=== PATIENT | female | born 1970 | race African-American/Black ===

== ENCOUNTER → 2023-02-21 | Outpatient (CLI) | payer OTHER ==
[~2023-02-21] MED LIST: AMBIEN 10MG10 MG PO; CALCIUM CITRATE1 TA1 PO; EFFEXOR-XR150 MG PO; IMITREX 6M6 MG/0.5 M SQ; MINIPRESS2 MG PO; NAPROSYN500 MG PO; PRINIVIL40 MG PO; PROTONIX20 MG PO; SEROQUEL 1100 MG/TAB PO
== END ==
LOC: COL.RAD 09:20
DX: K31.2 Hourglass stricture and stenosis of stomach (principal); K52.9 Noninfective gastroenteritis and colitis, unspecified; K59.00 Constipation, unspecified
CPT/HCPCS: Q9967

== ENCOUNTER 2024-01-03 07:00 | Day surgery (SDC) | payer OTHER ==
[~2024-01-03] VITALS: Ht 160.1 cm; Wt 94.4 kg
[2024-01-03] VITALS (16 sets, daily range): BP systolic 105–149; BP diastolic 67–109; PULSE 61–108; TEMP 97.1
[~2024-01-03 07:00] MED LIST changes: +CALCIUM CITRAT950 MG PO; -CALCIUM CITRATE1 TA1 PO
[2024-01-03] MEDS ORDERED: 1/2 NS 1,000 ML IV SCH (08:00)
[2024-01-03 08:19] LABS: HEMATOCRIT 40.6 % (37.0-47.0); HEMOGLOBIN 14.4 g/dl (12.5-16.0); MEAN CELL VOLUME 91 fl (80.0-100.0); MEAN CORPUSCULAR HEMOGLOBIN 32 pg (27-31); MEAN CORPUSCULAR HGB CONC 36 g/dl (33.0-37.0); MEAN PLATELET VOLUME 9.6 fl (7.4-10.4); PLATELET COUNT 287 K/mm3 (130-400); RED BLOOD COUNT 4.44 M/mm3 (4.10-5.30); REDCELL DISTRIBUTION WIDTH-CV 13.6 % (11.5-14.5)
[2024-01-03 08:28] LABS: INR 1.1 (0.8-3.0); PARTIAL THROMBOPLASTIN TIME 32.5 SECONDS (26.0-37.0)
[2024-01-03] MEDS ORDERED: NEURONTIN300 MG/CAP PO (08:49)
[2024-01-03] MEDS ORDERED: VALIUM 5MG T5 MG/TAB PO (08:49)
[2024-01-03] MEDS ORDERED: ASPIRIN 81M81 MG/TA2 PO (08:50)
[2024-01-03] MEDS ORDERED: ZOFRAN8 MG PO (08:50)
[2024-01-03 08:51] LABS: CALCIUM 8.7 mg/dL (8.4-10.2); CREATININE, serum 0.85 mg/dL (0.57-1.11); POTASSIUM 3.7 mEq/L (3.5-4.5)
[2024-01-03] MEDS ORDERED: NURTEC ODT75 MG PO (08:51)
[2024-01-03] MEDS ORDERED: NITRO-DUR0.2 MG/PAT TD (08:51)
[2024-01-03] MEDS ORDERED: NITROSTAT0.4 MG/TAB SL (08:52)
[2024-01-03] MEDS ORDERED: NORVASC 10MG10 MG PO (08:52)
[2024-01-03] MEDS ORDERED: FLEXERIL 1010 MG/TAB PO (08:52)
[2024-01-03] MEDS ORDERED: LIDODERM 5% PATC1 EA TP (08:53)
[2024-01-03] MEDS ORDERED: MOBIC15 MG PO (08:54)
[2024-01-03] MEDS ORDERED: DEPAKOTE500 MG PO (08:54)
--- NOTE | 2024-01-03 08:55 | NUR ---
Pt to procedure,report to KWADWO Cortez.
--- NOTE | 2024-01-03 09:14 | NUR ---
See [facility] report for procedural notes/sedation
[2024-01-03] MEDS ORDERED: fentaNYL 50 MCG/ML 2 ML VIAL IV SCH (09:20)
[2024-01-03] MEDS ORDERED: Nitroglycerin 100 MCG/ML (Cath Lab) 10 ML VIAL IA SCH (09:21)
[2024-01-03] MEDS ORDERED: Midazolam 2 MG/2 ML VIAL IV SCH (09:21)
[2024-01-03] MEDS ORDERED: Heparin 1,000 UNITS/ML 10 ML Multi-Dose VIAL IV SCH (09:22)
[2024-01-03] MEDS ORDERED: Verapamil 2.5 MG/ML 2 ML VIAL IA SCH (09:23)
[2024-01-03] MEDS ORDERED: Iohexol 350 - 100 ML VIAL INCOR ONE (09:33)
--- NOTE | 2024-01-03 09:45 | NUR ---
Pt back to [facility] - bedside handoff performed with KWADWO Chavez: vitals initiated and stable, TRBand stable, call light in reach, friend at bedside
--- NOTE | 2024-01-03 09:46 | NUR ---
Pt returned from procedure.Report from KWADWO Cortez.Right radial site observed clean,dry,intact.Patient observed alert and orientated,rspirations even and unlabored.
--- NOTE | 2024-01-03 13:46 | NUR ---
All air removed from right radial band in 2-3 ml incriments.No bleeding observed at site.
--- NOTE | 2024-01-03 14:15 | NUR ---
Discharge instructions given to pt.Pt verbalizes understanding.Patient escorted out via wheelchair by gricel gant.
== END 2024-01-03 15:28 ==
LOC: COL.CAR 07:00
PROVIDERS: Internal Medicine Cardiovascular Disease
DX: I25.10 Atherosclerotic heart disease of native coronary artery without angina pectoris (principal)
CPT/HCPCS: C1769; J1644; J2250; J3010; Q9967